=== PATIENT | female | born 1970 | race Caucasian/White ===

== ENCOUNTER 2019-12-17 13:00 | Inpatient (IN) | payer OTHER ==
[~2019-12-17] VITALS: Ht 165.1 cm; Wt 70.5 kg
--- NOTE | 2019-12-17 13:51 | NUR ---
BREAK RN: DR MARTINI AT BEDSIDE, PT ASSESSMENT POC DISCUSSED AND QUESTIONS ANSWERED.
[2019-12-17] MEDS ORDERED: ONDANSETRON 2MG/ML, 2ML IVPush ONE (14:00)
[2019-12-17 14:06] LABS: MICROSCOPIC AUTO
[2019-12-17] MEDS ORDERED: SERT50TA28 PO (14:06)
[2019-12-17] MEDS ORDERED: ONDANSETRON 2MG/ML, 2ML ONE (14:07)
[2019-12-17] MEDS ORDERED: MORPHINE SULFATE 4 MG/ML, 1ML ONE ×2 (14:07→15:49)
[2019-12-17] MEDS: MORPHINE SULFATE 4 MG/ML, 1ML IVPush PRN ×2 (14:09→15:53)
[2019-12-17 14:11] LABS: BASOPHILS # (AUTO) 0.03 x10^3/uL (0-0.1); BASOPHILS % (AUTO) 0 % (0-1); EOSINOPHILS # (AUTO) 0.17 x10^3/uL (0-0.4); EOSINOPHILS % (AUTO) 1 % (1-7); LYMPHOCYTES # (AUTO) 1.29 x10^3/uL (1-3.4); LYMPHOCYTES % (AUTO) 11 % (22-44); MD NO; MEAN CORPUSCULAR HEMOGLOBIN 31.9 pg (27.0-34.8); MEAN CORPUSCULAR HGB CONC 33.3 g/dL (32.4-35.8); MEAN PLATELET VOLUME 8.3 fL (7.4-10.4); MONOCYTES % (AUTO) 11 % (2-9); NEUTROPHILS # (AUTO) 9.23 x10^3/uL (1.8-6.8); NEUTROPHILS % (AUTO) 77 % (42-75); PLATELET COUNT 298 x10^3/uL (130-400); RED BLOOD COUNT 4.22 x10^6/uL (3.82-5.3); RED CELL DISTRIBUTION WIDTH 14.1 % (9.6-15.2)
[2019-12-17 14:21] LABS: ALANINE AMINOTRANSFERASE 46 U/L (12-78); ALBUMIN 4.1 g/dL (3.4-5.0); ANION GAP 4 mmol/L (5-15); CHLORIDE 108 mmol/L (98-107); CREATININE 0.77 mg/dL (0.55-1.02)
[2019-12-17 14:24] LABS: ALKALINE PHOSPHATASE 63 U/L (45-117)
--- NOTE | 2019-12-17 14:31 | NUR ---
Report from Stacy RUIZ With assessment patient with rlq tenderness Last meal 11am (a few piece of watermelon) CT scan called to expedite exam
--- NOTE | 2019-12-17 15:10 | NUR ---
to ct scan
[2019-12-17] MEDS ORDERED: OMNIPAQUE 350 MG/ML, 100ML BOTTLE ONE (15:26)
[2019-12-17] MEDS ORDERED: CEFOTETAN PMX 2GM/50ML 50 ML IV ONE (16:00)
[2019-12-17] MEDS ORDERED: METRONIDAZOLE PMX 500MG/100ML 100 ML ONE (16:22)
[2019-12-17] MEDS ORDERED: METRONIDAZOLE PMX 500MG/100ML 100 ML IV ONE (16:30)
[2019-12-17] MEDS ORDERED: BISACODYL 10 MG SUPP PR PRN (17:00)
[2019-12-17] MEDS ORDERED: ENALAPRILAT 1.25 MG/ML, 2ML IVPush PRN (17:00)
[2019-12-17] MEDS ORDERED: ONDANSETRON ODT 4 MG PO PRN (17:00)
[2019-12-17] MEDS: CEFOTETAN PMX 2GM/50ML 50 ML IV SCH (17:00)
[2019-12-17] MEDS ORDERED: DOCUSATE 100 MG CAPSULE PO PRN (17:00)
[2019-12-17] MEDS ORDERED: ONDANSETRON 2MG/ML, 2ML IVPush PRN (17:00)
[2019-12-17] MEDS ORDERED: ACETAMINOPHEN 325 MG TABLET PO PRN (17:00)
[2019-12-17] MEDS ORDERED: POLYETHYLENE GLYCOL 17 GM PACKET PO PRN (17:00)
[2019-12-17] MEDS: METRONIDAZOLE PMX 500MG/100ML 100 ML IV SCH (17:00)
[2019-12-17] MEDS: SODIUM CHLORIDE 0.9% 1,000 ML IV SCH (17:21)
--- NOTE | 2019-12-17 17:22 | NUR ---
Blood cultures drawn prior to Flagyl admin Report to Betina martinez
[2019-12-17] MEDS: ENOXAPARIN 40 MG/0.4 ML SQ SCH (18:00)
[2019-12-17] MEDS: KETOROLAC 30 MG/1 ML IV PRN (18:26)
[2019-12-17 18:34] VITALS: BP 120/70
[2019-12-17] MEDS: morphine SULFATE 10 MG/ML, 1ML IVPush PRN (21:32)
[2019-12-18] MEDS ORDERED: DIPHENHYDRAMINE 25 MG CAPSULE PO PRN (00:30)
[2019-12-18 00:39] VITALS: BP 100/64
[2019-12-18] MEDS: METRONIDAZOLE PMX 500MG/100ML 100 ML IV SCH ×3 (01:09→17:10)
[2019-12-18] MEDS: HYDROcodone/APAP 5/325 TABLET PO PRN ×3 (01:19→14:16)
[2019-12-18] MEDS: CEFOTETAN PMX 2GM/50ML 50 ML IV SCH ×2 (05:17→16:41)
[2019-12-18] MEDS: SODIUM CHLORIDE 0.9% 1,000 ML IV SCH ×2 (05:17→14:12)
[2019-12-18 06:12] LABS: CHLORIDE 108 mmol/L (98-107)
[2019-12-18 06:22] LABS: ANION GAP 6 mmol/L (5-15); CALCIUM 8.5 mg/dL (8.5-10.1); CREATININE 0.66 mg/dL (0.55-1.02)
[2019-12-18 06:31] LABS: BASOPHILS # (AUTO) 0.05 x10^3/uL (0-0.1); BASOPHILS % (AUTO) 1 % (0-1); EOSINOPHILS # (AUTO) 0.17 x10^3/uL (0-0.4); EOSINOPHILS % (AUTO) 2 % (1-7); LYMPHOCYTES # (AUTO) 1.66 x10^3/uL (1-3.4); LYMPHOCYTES % (AUTO) 20 % (22-44); MD NO; MEAN CORPUSCULAR HEMOGLOBIN 31.9 pg (27.0-34.8); MEAN PLATELET VOLUME 8.4 fL (7.4-10.4); MONOCYTES # (AUTO) 0.99 x10^3/uL (0.2-0.8); MONOCYTES % (AUTO) 12 % (2-9); NEUTROPHILS # (AUTO) 5.55 x10^3/uL (1.8-6.8); NEUTROPHILS % (AUTO) 66 % (42-75); PLATELET COUNT 275 x10^3/uL (130-400); RED BLOOD COUNT 4.05 x10^6/uL (3.82-5.3); RED CELL DISTRIBUTION WIDTH 13.9 % (9.6-15.2)
[2019-12-18 07:57] VITALS: BP 106/69
[2019-12-18] MEDS: SERTRALINE 50MG TABLET PO SCH (08:45)
[2019-12-18] MEDS: morphine SULFATE 10 MG/ML, 1ML IVPush PRN (11:22)
[2019-12-18] MEDS: KETOROLAC 30 MG/1 ML IV PRN ×2 (11:42→21:02)
[2019-12-18 14:59] VITALS: BP 107/75
[2019-12-18] MEDS: ENOXAPARIN 40 MG/0.4 ML SQ SCH (18:00)
[2019-12-18 20:10] VITALS: BP 106/74
[2019-12-19] MEDS: METRONIDAZOLE PMX 500MG/100ML 100 ML IV SCH ×2 (00:45→09:02)
[2019-12-19] MEDS: SODIUM CHLORIDE 0.9% 1,000 ML IV SCH (00:46)
[2019-12-19 01:25] VITALS: BP 112/75
[2019-12-19] MEDS: CEFOTETAN PMX 2GM/50ML 50 ML IV SCH (05:01)
[2019-12-19 08:02] VITALS: BP 119/78
[2019-12-19] MEDS: SERTRALINE 50MG TABLET PO SCH (09:02)
[2019-12-19] MEDS: KETOROLAC 30 MG/1 ML IV PRN (09:02)
[2019-12-19] MEDS ORDERED: CIPR500T3 PO (10:04)
[2019-12-19] MEDS ORDERED: METR-90 PO (10:04)
== END 2019-12-19 12:00 | disposition home or self-care (01) | DRG 392 ==
LOC: ED 14:11 → EDIP 16:07 → 3N 17:47 → DCLOUNGE 12-19 11:50
PROVIDERS: ADMIT Hospitalist; ATTEND Hospitalist
DX: K57.32 Diverticulitis of large intestine without perforation or abscess without bleeding (principal); F41.9 Anxiety disorder, unspecified; D72.829 Elevated white blood cell count, unspecified; Z80.1 Family history of malignant neoplasm of trachea, bronchus and lung; Z82.49 Family history of ischemic heart disease and other diseases of the circulatory system
CPT/HCPCS: 36415; 74177; 80048; 80053; 81001; 83690; 85025; 87040; 87086; 96365; 96375; 96376; G0378; J1885; J2405; Q9967; J2270; J3490; J7030